=== PATIENT | female | born 1965 | race American Indian/Alaskan Native ===

== ENCOUNTER 2019-08-28 14:25 | Outpatient (CLI) | payer BC ==
--- NOTE | 2019-08-28 15:08 | Ultrasound Report ---
RIGHT AXILLARY ULTRASOUND HISTORY: Newly diagnosed right breast cancer. COMPARISON: 08/05/2019 [facility] mammogram. FINDINGS: Sonographic evaluation of the right axilla reveals no grossly abnormal lymph nodes. A 2.2 c m lymph node with a fatty hilum and a cortex of 4.3 mm. A smaller lymph node with central fat and a c ortical thickness of 3.9 mm. IMPRESSION: Right axillary lymph nodes with benign morphology and borderline thick cortex. BIRADS 3: Probably benign. Signer Name: Oleg Hyde MD Signed: 08/28/2019 3:03 PM Workstation Name: [id number]
== END 2019-08-28 14:26 | disposition home or self-care (01) ==
LOC: SPVWC 14:25
PROVIDERS: ATTEND Surgery
DX: C50.911 Malignant neoplasm of unspecified site of right female breast (principal)

== ENCOUNTER 2019-09-01 14:56 | Outpatient (CLI) | payer BC ==
--- NOTE | 2019-09-02 11:22 | Magnetic Resonance Report ---
BILATERAL BREAST MR WITHOUT AND WITH GADOLINIUM INDICATION: Newly diagnosed right breast cancer. COMPARISONS: 08/05/2019 [facility] mammogram and limited right breast ultrasound. TECHNIQUE: Axial 1.0 mm T1 without, axial high-resolution 2.0 mm T2 and axial 1.0 mm dynamic vibrant high-resolution postcontrast T1 fat saturation sequences on a 1.5 Meli magnet. The examination was p erformed with an 8-channel dedicated [place] breast coil. Post-processing with CAD and subtraction was performed on an Vpon workstation. 19.0 cc of MultiHance was injected without incident for the c ontrast portion of the exam. Consent was obtained prior to the administration of the contrast. FINDINGS: RIGHT BREAST: Minimal background parenchymal enhancement. An oval mass with with an adjacent biopsy c lip at 9:00 10 cm from the nipple correlates with a previously biopsied benign mass. It measures 15.0 x 7.4 x 5.1 mm and demonstrates a benign enhancement pattern with 72% type I persistent and 1% type III washout waveforms. An irregular heterogeneously enhancing mass of the lower outer quadrant chest wall correlates with the newly diagnosed cancer. It is located 18 cm from the nipple and 1.4 cm from the chest wall. The mass measures 4.8 x 4.1 x 3.5 cm and demonstrates heterogeneous enhancement with mixed kinetics, rapid initial enhancement, 295% peak enhancement and 62% type III washout. No invasio n of the chest wall. No suspicious right axillary or right internal mammary lymph nodes. LEFT BREAST: Minimal background parenchymal enhancement. No mass or suspicious enhancement. No suspic ious left axillary or left internal mammary lymph nodes. IMPRESSION: 1. A 4.8 x 4.1 x 3.5 cm known right breast cancer which is 18 cm from the nipple and 1.4 cm from the chest wall. This mass is not apparent on the recent mammogram. 2. No chest wall invasion. 3. No other suspicious lesion of either breast. 4. No suspicious lymph nodes. BI-RADS Category 6: Known Cancer Signer Name: Oleg Hyde MD Signed: 09/02/2019 11:17 AM Workstation Name: [id number]
== END 2019-09-01 14:57 | disposition home or self-care (01) ==
LOC: SPVIMAG 14:56
PROVIDERS: ATTEND Surgery
DX: C50.911 Malignant neoplasm of unspecified site of right female breast (principal); N63.41 Unspecified lump in right breast, subareolar; N63.23 Unspecified lump in the left breast, lower outer quadrant
CPT/HCPCS: A9577; C8908; 77049

== ENCOUNTER 2019-09-16 10:59 | Day surgery (SDC) | payer BC ==
--- NOTE | 2019-09-15 14:17 | Short Stay Summary ---
Short Stay Documentation Date of service: 09/16/19 - History H&P: obtained from office - Allergies and Medications Current Medications: Allergies No Known Allergies Allergy (Verified 09/11/19 15:42) Home Medications Medication Instructions Recorded Confirmed Last Taken Type AtorvaSTATin [Lipitor] 20 mg PO QHS 09/11/19 09/11/19 Unknown History Losartan/Hydrochlorothiazide 1 each PO DAILY 09/11/19 09/11/19 Unknown History [Losartan-Hctz 50-12.5 mg Tab] Sitagliptin Phos/Metformin HCl 2 tab PO QDAY 09/11/19 09/11/19 Unknown History [Janumet XR 50-1,000 mg] Active Medications Sodium Chloride (Nacl 0.9% 1000 Ml) 1,000 mls @ 75 mls/hr IV DIRECT ABEL - Physical exam General appearance: no acute distress HEENT: Atraumatic Lungs: Normal air movement Neurological: Normal speech - Brief post op/procedure progress note Date of procedure: 09/16/19 (dictation: [id number]) Pre-op diagnosis: breast cancer Post-op diagnosis: same Procedure: US guided port placement IVF - 800cc EBL min Anesthesia: GETA Findings: normal anatomy Surgeon: EARNESTINE BORJAS Estimated blood loss: minimal Pathology: none Condition: stable - Hospital course Hospital course: uneventful - Disposition Condition at discharge: Stable Disposition: DC-01 TO HOME OR SELFCARE Short Stay Discharge Plan Activity: advance as tolerated Diet: regular Wound: open to air, keep clean and dry Special Instructions: no heavy lifting Additional Instructions: Post Operative Instructions Activity: no heavy lifting for next 1 week. May shower tomorrow. Pat dry the wound or wounds. Keep incision sites clean and dry After surgery, start with a light diet. Consider starting with liquids. If you do well, you can advance to a regular diet as you feel comfortable. Apply an ice pack to the wound or wounds for 10-20 minutes at a time. Do this at least 4-5 times a day. You can do it more if he would like. Pain Medication Schedule for the first 2 days after surgery: Gabapentin 600mg twice a day Celebrex (celecoxib) 200mg twice a day Tylenol 500mg four times a day (every 6 hours) After the first 2 days, then take alternating doses of ibuprofen and Tylenol as needed for pain. Take 600 mg of ibuprofen every 6 hours as needed. Take 500 mg of Tylenol every 6 hours as needed. You should alternate these 2 medicines. Make sure you take the ibuprofen with food. It is very important that you use the prescription narcotic pain medicine (hydrocodone) only for very severe pain. Do not take the narcotic medicine before you try using all the medications listed above. We will call you in a couple of days to see how youre doing. If you have any questions or concerns, always feel free to call the clinic ([phone]) at any time. Follow up with: SAW RODAS MD [Primary Care Provider] - 7 Days Forms: [facility] Work/School Release Form Prescriptions: Acetaminophen [Acetaminophen TAB] 500 mg PO QID 2 Days tablet Celecoxib [celeBREX] 200 mg PO BID 2 Days capsule Gabapentin 600 mg PO BID 2 Days capsule HYDROcodone/APAP 5-325 [Nahma 5-325 mg TAB] 1 each PO Q6HR PRN #5 tablet PRN Reason: Pain
[~2019-09-16 10:59] MED LIST: ACETAMINOPHEN 500 MG TAB PO ONE; CELECOXIB 200 MG CAP PO NR; GABAPENTIN 300 MG CAP PO SCH; HEPARIN 10,000 UNITS/10 ML VIAL IV ONE; SODIUM CHLORIDE 0.9% 1000 ML 1,000 ML IV SCH
--- NOTE | 2019-09-16 11:29 | Anesthesia Day of Surgery ---
Anesthesia Day of Surgery - Day of Surgery Patient Examined: Yes Patient H&P Reviewed: Yes Patient is NPO: Yes
--- NOTE | 2019-09-16 11:34 | Anesthesia Consultation ---
Anesthesia Consult and Med Hx Date of service: 09/16/19 - Airway Anesthetic Teeth Evaluation: Caps ROM Head & Neck: Adequate Mental/Hyoid Distance: Adequate Mallampati Class: Class III Intubation Access Assessment: Probably Good - Pre-Operative Health Status ASA Pre-Surgery Classification: ASA3 Proposed Anesthetic Plan: General - Pulmonary Hx Smoking: No Hx Sleep Apnea: (HIGH RISK) - Cardiovascular System Hx Hypertension: Yes (X2YRS) - Central Nervous System Hx Psychiatric Problems: No - Other Systems Hx Alcohol Use: No Hx Substance Use: No Hx Cancer: Yes (Right breast)
[2019-09-16] MEDS ORDERED: MIDAZOLAM 2 MG/2 ML INJ IV NR (12:00)
[2019-09-16] MEDS ORDERED: ACETAMINOPHEN 500 MG TAB PO NR (13:00)
[2019-09-16] MEDS ORDERED: LACTATED RINGERS 1,000 ML IV SCH (13:00)
[2019-09-16] MEDS ORDERED: PROPOFOL 200 MG/20 ML VIAL IV ONE (13:45)
[2019-09-16] MEDS ORDERED: HYDROmorphone 1 MG/1 ML INJ ONE (13:45)
[2019-09-16] MEDS ORDERED: LIDOCAINE MPF (2%) 20 MG/1 ML VIAL 5 ML ONE (13:47)
[2019-09-16] MEDS ORDERED: LIDOCAINE (1%) 10 MG/1 ML VIAL 20 ML MDV ONE (14:10)
[2019-09-16] MEDS ORDERED: HEPARIN 10,000 UNITS/10 ML VIAL ONE (14:10)
[2019-09-16] MEDS ORDERED: BUPIVACAINE-EPINEPHRINE/PF 0.5%-1:200,000 (30 ML) VIAL INFILTRATI ONE ×2 (14:10→14:38)
[2019-09-16] MEDS ORDERED: SODIUM CHLORIDE 0.9% 250ML 250 ML ONE (14:10)
[2019-09-16] MEDS ORDERED: SODIUM CHLORIDE P/F VIAL 10 ML 10 ML ONE (14:37)
[2019-09-16] MEDS ORDERED: LIDOCAINE (1%) 10 MG/1 ML VIAL 20 ML MDV INFILTRATI ONE (14:38)
[2019-09-16] MEDS ORDERED: PHENYLEPHRINE/NS 1,000 MCG/10 ML SYRINGE (OR USE) IV ONE (14:44)
[2019-09-16] MEDS ORDERED: HEPARIN 1,000 UNIT/1 ML VIAL IV ONE (14:46)
[2019-09-16] MEDS ORDERED: SODIUM CHLORIDE 0.9% 250 ML IVPB IV ONE (14:46)
[2019-09-16] MEDS ORDERED: HEPARIN 10,000 UNITS/10 ML VIAL IV ONE (14:55)
[2019-09-16] MEDS ORDERED: ONDANSETRON 4 MG/2 ML INJ ONE (15:13)
[2019-09-16] MEDS ORDERED: KETOROLAC 30 MG/1 ML INJ ONE (15:13)
--- NOTE | 2019-09-16 16:07 | Fluoroscopy Report ---
FL CENTRAL VENOUS DEV PLCT and AP CXR 3:15 PM INDICATION / CLINICAL INFORMATION: Right breast cancer. CVL placement COMPARISON: None available. FINDINGS: There is a left jugular Port-A-Cath with the tip overlying the inferior right atrium. The heart size and pulmonary vasculature are normal. There is mild patchy parenchymal disease in the right perihilar region superiorly. I see no evidence of pneumothorax or pleural effusion. Fluoroscopy time: 1.1 minute. Fluoroscopic images: 1. IMPRESSION: 1. Left jugular CVL tip overlies the inferior right atrium. No pneumothorax. 2. Mild patchy parenchymal disease in the right perihilar region superiorly. Signer Name: Sai Dave MD Signed: 09/16/2019 4:03 PM Workstation Name: [id number]
--- NOTE | 2019-09-16 16:19 | Operative Report ---
PREOPERATIVE DIAGNOSIS: Breast cancer. POSTOPERATIVE DIAGNOSIS: Breast cancer. PROCEDURES: 1. Insertion of tunneled centrally inserted central venous access device with subcutaneous port. 2. Ultrasound guidance for vascular access. ATTENDING PHYSICIAN: Selena Hunt MD ANESTHESIA: General. ESTIMATED BLOOD LOSS: Minimal. FLUIDS: 800 mL. FINDINGS: Normal anatomy. IMPLANTS: Smart port. COMPLICATIONS: None. DISPOSITION: Stable transport to Recovery Room. INDICATIONS: This is a 54-year-old female who has recently been diagnosed with breast cancer. The patient is assessed to be need for chemotherapy, referred to General Surgery for port placement. Procedure, risks, benefits were explained to the patient. Risks included but were not limited to infection, bleeding, pain, injury to surrounding structures, possible need for further procedures in the future. The patient understood and consented. OPERATIVE NOTE: The patient was brought to the operating room and placed on the table in supine position. After adequate general anesthesia was established, the patient was prepped and draped in the usual sterile fashion. Roll was placed underneath the shoulder blades. SCDs were in place. Antibiotics have been given. Time-out was called. I began by doing an ultrasound examination of her left internal jugular vein and subclavian vein. The subclavian vein was difficult to identify. The left subclavian vein was large and patent and appeared to be easily accessible. This was chosen as our target site. Local anesthetic was injected over the planned insertion site. Small incision was made under ultrasound guidance. Introducer needle was directed into the vein. I was able to access the vein on the first attempt. Tip of the needle could be seen in the mid portion of the vein. We had good aspiration of blood. Guidewire easily passed. We went down into the right side of the heart. Please note the patient was in Trendelenburg position during this portion of the case. A guidewire was secured. We then directed our attention to creating a pocket. Additional local was injected. Sharp incision was made. Subcutaneous pocket was created and then the planned catheter site was injected with local. A tunneler was passed up to the neck. This was done safely. Dilator and sheath were then passed over the wire. A guidewire was easily movable at multiple points during the insertion of the sheath. Dilator and wire were removed. Catheter was inserted. We adjusted the position based on fluoroscopy and then we trimmed the length of the catheter attached the port and placed in the pocket. We tested it with heparinized saline. We had easy aspiration and flushing and then we locked the port. Catheter was positioned and completely underneath the skin. Sheath had been removed. Position and course of the catheter were checked with fluoroscopy. There were no kinks, no twists. Everything appeared to be lying appropriately. The tip of the catheter was slightly lower than our usual target; however, I felt that when the patient stands up due to the weight of her breasts, she is going to pull the catheter down, which should then pull the catheter tip back slightly. Our past experience is such that often times if we placed the tip exactly where we want and then the patient stands up, the catheter retracts much further back than where we originally intended to place it. Additional local was injected around the port. We had good hemostasis. Deep tissue was closed with interrupted 3-0 Vicryl sutures. Skin was closed with 4-0 Monocryl subcuticular stitch. Skin was cleaned and dried. Dermabond was placed. The patient tolerated the procedure well. There were no complications. All counts were correct at the end of the case. I tried to contact the family by phone; however, the voicemail seemed to have a different name compared to what was written on the chart; therefore, no voice mail was left. JOB# [id number] NIKOS/HUMERA CONDE
[2019-09-16 20:01] VITALS: BP 123/68
== END 2019-09-16 11:00 | disposition home or self-care (01) ==
LOC: OR 10:59
PROVIDERS: ATTEND Surgery
DX: C50.919 Malignant neoplasm of unspecified site of unspecified female breast (principal); G62.9 Polyneuropathy, unspecified; E78.00 Pure hypercholesterolemia, unspecified; I10 Essential (primary) hypertension; G47.30 Sleep apnea, unspecified; Z79.899 Other long term (current) drug therapy; Z98.891 History of uterine scar from previous surgery; Z98.890 Other specified postprocedural states; Z80.3 Family history of malignant neoplasm of breast; Z80.8 Family history of malignant neoplasm of other organs or systems
CPT/HCPCS: 36561; 77001; 82962; C1788; J0690; J1170; J1644; J1885; J2250; J2370; J2405; J2704; J7030; J7050; J7120

== ENCOUNTER 2019-09-18 08:14 | Outpatient (CLI) | payer BC ==
--- NOTE | 2019-09-18 13:33 | PET Report ---
PET/CT CLINICAL: Recently diagnosed right breast cancer COMPARISON: 09/01/2019, 08/28/2019, 08/05/2019. RADIOPHARMACEUTICAL: 14.939 mCi F-18-FDG TECHNIQUE: Following the intravenous injection of F-18-FDG and an approximately 60 minute uptake period, CT and PET images from the mid skull to the upper thighs were acquired with the patient in the fasted state. No contrast was administered. The CT protocol used for this PET CT study is designed for attenuation correction and anatomic localization of PET abnormalities. This application support CT is not desired to produ ce and cannot replace [id number] diagnostic CT scans with specific imaging protocols for differ ent body parts and indications. Plasma glucose at the time of this test: 111 g/dl The standardized uptake values (SUV) are normalized to patient body weight and indicate the highest a ctivity concentration (SUV max) in a given disease state. FINDINGS: Brain: Physiologic uptake in the visualized regions of the brain. Neck: Physiologic FDG uptake in mucosal structures. No mass or lymphadenopathy. Chest: There is a 3.8 x 2.9 cm mass within the lower outer right breast. This demonstrates hypermetab olic activity (Max SUV 16.6) and is consistent with site of known right breast malignancy at the 8:00 position. A few mildly prominent right lateral breast intramammary lymph nodes are also noted. Howev er, these demonstrate no significant increased hypermetabolic activity and these were evaluated on pr ior targeted ultrasound and were found to have benign morphology. No additional areas of focal metabo lic activity within the chest. Specifically, no pathologically enlarged mediastinal lymph nodes. A le ft chest Port-A-Cath is noted. Physiologic FDG uptake in mediastinal blood pool and myocardium. Lungs: No abnormal uptake. No pulmonary nodule or mass. Pleura/pericardium: No abnormal uptake. Thoracic nodes: No abnormal uptake. Hepatobiliary: No abnormal uptake or discrete liver mass or Spleen: No abnormal uptake. Pancreas: No abnormal uptake. Adrenal glands: No abnormal uptake. Kidneys/ureters/bladder: No abnormal uptake. Abdominopelvic nodes: No abnormal uptake. Bowel/peritoneum/mesentery: There are three focal areas of radiotracer uptake seen in the region of t he distal sigmoid colon and rectum. These up to 16 mm and demonstrate SUV max of 11.1. No definite CT correlate is identified, although the bowel this region is largely collapsed which limits evaluation . Pelvic organs: No abnormal uptake. Bones/soft tissues: No abnormal uptake. Other findings: Small fat-containing periumbilical hernias (3) are noted. IMPRESSION: Known biopsy-proven malignancy in the right lower outer breast measures up to 3.8 cm on current exam. No findings to suggest the presence of metastatic breast disease. There are three focal areas of radiotracer uptake in the region of the distal sigmoid colon and rectu m. No definite CT correlate is seen, although the bowel in this region is largely collapsed which brown its evaluation. These may represent focal areas of inflammation which can be seen in the setting of m ild diverticulitis. The presence of primary colonic malignancy cannot be excluded and a colonoscopy i s recommended, if patient has not had one recently. Signer Name: Jimbo Aleman MD Signed: 09/18/2019 1:29 PM Workstation Name: [id number]
== END 2019-09-18 08:15 | disposition home or self-care (01) ==
LOC: PET 08:14
PROVIDERS: ATTEND Internal Medicine Hematology
DX: C50.311 Malignant neoplasm of lower-inner quadrant of right female breast (principal); K42.9 Umbilical hernia without obstruction or gangrene; N63.13 Unspecified lump in the right breast, lower outer quadrant
CPT/HCPCS: 78815; 82962; A9552

== ENCOUNTER 2020-01-27 12:38 | Outpatient (CLI) | payer BC | END 2020-01-27 12:39 | disposition home or self-care (01) | LOC: SPVWC 12:38 | PROVIDERS: ATTEND Surgery | DX: C50.511 Malignant neoplasm of lower-outer quadrant of right female breast (principal) ==

== ENCOUNTER 2020-02-05 09:11 | Outpatient (CLI) | payer BC ==
--- NOTE | 2020-02-05 12:21 | Ultrasound Report ---
EXAMINATION: Limited Breast Ultrasound, 02/05/2020 INDICATION: RIGHT BREAST CANCER-S/P CHEMOTHERAPY COMPARISON: Prior right breast ultrasounds including 08/28/2019 and 08/05/2019, as well as prior mammograms includi ng 01/27/2020, 08/05/2019 FINDINGS: Targeted ultrasound evaluation was performed of the area of interest. In the 8:00 position of the right breast, 10 cm from the nipple, there is a 1.1 cm hypoechoic mass present. This is very minimal residua from known breast cancer identified in this location previously which had maximum diana meter of 3.2 cm on the prior exam. IMPRESSION: Previously noted large right breast cancer at 8:00 has been reduced to a 1.1 cm mass. Thi s represents significant response following chemotherapy. Follow up recommendation: Continued surgical consultation/evaluation. Patient is being followed by Dr Lyndon Almendarez. BI-RADS Category 6: Known Biopsy-Proven Malignancy. Signer Name: Debbie Trejo MD Signed: 02/05/2020 12:15 PM Workstation Name: [id number]
== END 2020-02-05 09:12 | disposition home or self-care (01) ==
LOC: SPVWC 09:11
PROVIDERS: ATTEND Surgery
DX: C50.511 Malignant neoplasm of lower-outer quadrant of right female breast (principal); N63.13 Unspecified lump in the right breast, lower outer quadrant

== ENCOUNTER 2020-02-18 14:14 | Outpatient (CLI) | payer BC, MEDICAID ==
--- NOTE | 2020-02-18 16:31 | Ultrasound Report ---
ULTRASOUND-GUIDED NEEDLE CORE BIOPSY Right BREAST WITH CLIP PLACEMENT CLINICAL: Patient has known right breast malignancy, status post neoadjuvant chemotherapy. We are ask ed to place clip at site of breast malignancy prior to breast surgery FINDINGS: The procedure was explained to the patient and informed consent was obtained. Ultrasound demonstrated the previously identified a vague small hypoechoic area in the right breast a t 8:00, 10 cm from the nipple measuring 7 x 3 mm.. This small vague hypoechoic area is thought to be residual site of patient's original 3 cm breast malignancy. I marked the breast with a felt tip marker and a timeout was called. The skin was prepped with chlorh exidine and anesthetized with 1% lidocaine. Needle core biopsy was performed through small dermatotomy using ultrasound guidance, 2% lidocaine wi th epinephrine for deep anesthesia and a 14-gauge Achieve biopsy device. Four cores were obtained and placed in formalin. A clip was deployed within the lesion. The patient tolerated the procedure well and there were no apparent complications. Hemostasis was ach ieved with minimal effort and a sterile dressing was applied. A post procedure mammogram demonstrated concordant clip deployment. Patient left the department in go od condition and was given instructions for wound care and follow-up. IMPRESSION: Technically successful ultrasound guided needle core biopsy with clip placement right breast. An addendum will be performed once pathology results are available. Signer Name: Debbie Trejo MD Signed: 02/18/2020 4:27 PM Workstation Name: [id number]
--- NOTE | 2020-02-18 16:36 | Mammography Report ---
DIGITAL DIAGNOSTIC MAMMOGRAM WITH CAD, 02/18/2020 INDICATION: Postprocedure clip placement mammogram. Biopsy clip was not placed at the time of origina l percutaneous breast biopsy. TECHNIQUE: Digital right mammographic imaging was performed. This examination was interpreted with the benefit of Computer-aided Detection analysis. COMPARISON: 08/05/2019 mammogram FINDINGS: Breast Density: There are scattered areas of fibroglandular density. . There is a small clip present in the 8:00 position of the breast 10 cm from the nipple. This corresp onds to the site of the palpable abnormality originally noted on 08/05/2019 mammogram and presumably is the site of the originally biopsied breast neoplasm. There is a second clip (celero) from a remote biopsy at 9:00, 8 cm from the nipple. IMPRESSION: Right breast clip placement at 8:00, 10 cm from the nipple, at what is thought to be resi dual site of breast neoplasm following chemotherapy. Follow up recommendation: Continued surgical evaluation BI-RADS Category 6: Known Biopsy-Proven Malignancy. A "normal" or negative report should not discourage follow up or biopsy of a clinically significant f inding. A written summary of these findings will be mailed to the patient. The patient will be entered into a mammography reporting system which will generate a reminder letter for the patient's next appointmen t at the appropriate interval. According to the [employer], yearly mammograms are recommended starting at age 40 and continuing as long as a woman is in good health. Breast MRI is recommended for women with an yolanda roximately 20-25% or greater lifetime risk of breast cancer, including women with a strong family his tory of breast or ovarian cancer and women who have been treated for Hodgkin's disease. Signer Name: Debbie Trejo MD Signed: 02/18/2020 4:31 PM Workstation Name: [id number]
== END 2020-02-18 14:15 | disposition home or self-care (01) ==
LOC: SPVWC 14:14
PROVIDERS: ATTEND Surgery
DX: N63.13 Unspecified lump in the right breast, lower outer quadrant (principal); N60.21 Fibroadenosis of right breast; G62.9 Polyneuropathy, unspecified; E78.00 Pure hypercholesterolemia, unspecified; I10 Essential (primary) hypertension; G47.30 Sleep apnea, unspecified; Z85.3 Personal history of malignant neoplasm of breast; Z98.891 History of uterine scar from previous surgery; Z98.890 Other specified postprocedural states; Z79.899 Other long term (current) drug therapy; Z80.8 Family history of malignant neoplasm of other organs or systems; Z80.3 Family history of malignant neoplasm of breast
CPT/HCPCS: 88305

== ENCOUNTER 2020-02-23 11:03 | Day surgery (SDC) | payer BC, MEDICAID ==
--- NOTE | 2020-02-23 09:58 | Anesthesia Consultation ---
Anesthesia Consult and Med Hx Date of service: 02/25/20 - Airway Anesthetic Teeth Evaluation: Caps ROM Head & Neck: Adequate Mental/Hyoid Distance: Adequate Mallampati Class: Class III Intubation Access Assessment: Probably Good - Pre-Operative Health Status ASA Pre-Surgery Classification: ASA2 Proposed Anesthetic Plan: General Nerve Block: PECS - Pulmonary Hx Smoking: No (2FS) Hx Sleep Apnea: (HIGH RISK) - Cardiovascular System Hx Hypertension: Yes (X2YRS. D/C'd her meds) Hx Coronary Artery Disease: No (Pt reports negative cardiac w/u prior to chemo) - Central Nervous System Hx Psychiatric Problems: No - Endocrine Hx Non-Insulin Dependent Diabetes: Yes (D/C'd her meds) - Other Systems Hx Alcohol Use: No Hx Substance Use: No Hx Cancer: Yes (Right breast) Hx Obesity: Yes (BMI 38)
[2020-02-23 10:11] VITALS: BP 141/88
[2020-02-25] MEDS ORDERED: ceFAZolin/Water 2 GM/20 ML 2 GM/20 ML SYRINGE IV NR (06:00)
== END 2020-02-25 23:59 | disposition home or self-care (01) ==
LOC: OR 11:03
PROVIDERS: ATTEND Surgery
DX: C50.911 Malignant neoplasm of unspecified site of right female breast (principal); Z11.59 Encounter for screening for other viral diseases; Z53.8 Procedure and treatment not carried out for other reasons; E11.42 Type 2 diabetes mellitus with diabetic polyneuropathy; G62.9 Polyneuropathy, unspecified; E78.00 Pure hypercholesterolemia, unspecified; I10 Essential (primary) hypertension; G47.30 Sleep apnea, unspecified; E66.9 Obesity, unspecified; Z98.891 History of uterine scar from previous surgery; Z80.3 Family history of malignant neoplasm of breast; Z98.890 Other specified postprocedural states
CPT/HCPCS: U0003-CS

== ENCOUNTER 2020-05-19 07:04 | Observation (INO) | payer BC, MEDICAID ==
[~2020-05-19 07:04] MED LIST changes: -ACETAMINOPHEN 500 MG TAB PO ONE; +BACITRACIN 50,000 UNIT VIAL IR ONE; +GABAPENTIN 300 MG CAP PO NR; -GABAPENTIN 300 MG CAP PO SCH; +GENTAMICIN 40 MG/ML VIAL 2 ML IV ONE; -HEPARIN 10,000 UNITS/10 ML VIAL IV ONE; +LACTATED RINGERS 1,000 ML IV SCH; +METHYLENE BLUE 50 MG/10 ML AMP IRRIGATION ONE; +MIDAZOLAM 2 MG/2 ML INJ IV NR; +SCOPOLAMINE TRANSDERMAL PATCH 72 HR TD NR; -SODIUM CHLORIDE 0.9% 1000 ML 1,000 ML IV SCH; +SODIUM CHLORIDE 0.9% IRR 1,500 ML BOTTLE IR ONE; +ceFAZolin 1 GM VIAL IV ONE; +ceFAZolin/Water 2 GM/20 ML 2 GM/20 ML SYRINGE IV NR; +fentaNYL 100 MCG/2 ML INJ IV PRN
--- NOTE | 2020-05-19 07:49 | Anesthesia Day of Surgery ---
Anesthesia Day of Surgery - Day of Surgery Patient Examined: Yes Patient H&P Reviewed: Yes Patient is NPO: Yes
--- NOTE | 2020-05-19 07:49 | Anesthesia Consultation ---
Anesthesia Consult and Med Hx Date of service: 05/19/20 - Airway Anesthetic Teeth Evaluation: Crowns ROM Head & Neck: Adequate Mental/Hyoid Distance: Adequate Mallampati Class: Class III Intubation Access Assessment: Possibly Difficult - Pulmonary Exam CTA: Yes - Cardiac Exam Cardiac Exam: RRR - Pre-Operative Health Status ASA Pre-Surgery Classification: ASA3 Proposed Anesthetic Plan: General Nerve Block: PECs - Pulmonary Hx Respiratory Symptoms: No (COVID+ but was asymptomatic. Recent neg test on chart.) Hx Sleep Apnea: (HIGH RISK) - Cardiovascular System Hx Hypertension: Yes (stopped meds on her own; runs 130s/80s at home) Hx Heart Attack/AMI: No Hx Percutaneous Transluminal Coronary Angioplasty (PTCA): No Hx Cardia Arrhythmia: No - Central Nervous System CVA: No Hx Psychiatric Problems: No - Gastrointestinal Hx Gastroesophageal Reflux Disease: No - Endocrine Hx Renal Disease: No Hx Liver Disease: No Hx Non-Insulin Dependent Diabetes: Yes (stopped meds on her own, fasting BG 140s-160s at home) Hx Thyroid Disease: No - Other Systems Hx Cancer: Yes (breast ca) Hx Obesity: Yes (BMI 38)
[2020-05-19] MEDS ORDERED: dexAMETHasone 4 MG/ML VIAL ONE (07:57)
[2020-05-19] MEDS ORDERED: BUPIVACAINE-EPINEPHRINE/PF 0.25%-1:200,000 (30 ML) VIAL INFILTRATI ONE (07:57)
[2020-05-19] MEDS ORDERED: dexAMETHasone 20 MG/5 ML VIAL ONE (09:30)
[2020-05-19] MEDS ORDERED: ONDANSETRON 4 MG/2 ML INJ ONE (09:30)
[2020-05-19] MEDS ORDERED: HYDROmorphone 1 MG/1 ML INJ ONE ×2 (09:30→18:18)
[2020-05-19] MEDS ORDERED: propofoL 200 MG/20 ML VIAL IV ONE (09:30)
[2020-05-19] MEDS ORDERED: LIDOCAINE MPF (2%) 20 MG/1 ML VIAL 5 ML ONE (09:30)
[2020-05-19] MEDS ORDERED: PHENYLEPHRINE/NS 1,000 MCG/10 ML SYRINGE (OR USE) IV ONE (09:30)
[2020-05-19] MEDS ORDERED: LACTATED RINGERS 1000 ML IV SOLN ONE (09:30)
[2020-05-19] MEDS ORDERED: ROCURONIUM 50 MG/5 ML INJ IV ONE (09:30)
[2020-05-19] MEDS ORDERED: METHYLENE BLUE 50 MG/10 ML AMP IRRIGATION ONE ×2 (11:31→15:41)
[2020-05-19] MEDS ORDERED: SODIUM CHLORIDE 0.9% P/F 10 ML VIAL INFILTRATI ONE (11:32)
[2020-05-19] MEDS ORDERED: ceFAZolin 1 GM VIAL ONE (12:24)
[2020-05-19] MEDS ORDERED: GENTAMICIN 40 MG/ML VIAL 2 ML ONE (12:24)
[2020-05-19] MEDS ORDERED: SODIUM CHLORIDE P/F VIAL 10 ML 20 ML ONE (12:24)
[2020-05-19] MEDS ORDERED: BACITRACIN 50,000 UNIT VIAL ONE (12:24)
[2020-05-19] MEDS ORDERED: SODIUM CHLORIDE 0.9% 1000 ML 1,000 ML ONE (14:08)
[2020-05-19] MEDS ORDERED: SODIUM CHLORIDE 0.9% IRR 1,500 ML BOTTLE IR ONE ×2 (14:52→15:21)
[2020-05-19] MEDS ORDERED: ONDANSETRON 4 MG/2 ML INJ IV PRN (14:53)
[2020-05-19] MEDS ORDERED: METOCLOPRAMIDE 10 MG TAB PO PRN (14:53)
[2020-05-19] MEDS ORDERED: diphenhydrAMINE 25 MG CAP PO PRN (14:53)
[2020-05-19] MEDS ORDERED: oxyCODONE /ACETAMINOPHEN 5-325MG TAB PO PRN (14:53)
--- NOTE | 2020-05-19 14:53 | Short Stay Summary ---
Short Stay Documentation Date of service: 05/19/20 - History H&P: obtained from office - Allergies and Medications Current Medications: Allergies No Known Allergies Allergy (Verified 05/12/20 09:54) Home Medications Medication Instructions Recorded Confirmed Last Taken Type Capecitabine [Xeloda] 500 mg PO BID 05/12/20 05/12/20 05/11/20 History Active Medications Celecoxib (Celebrex) 200 mg PO PREOP NR Stop: 05/19/20 22:00 Last Admin: 05/19/20 08:20 Dose: 200 mg Documented by: Fentanyl (Sublimaze) 100 mcg IV ONCE PRN PRN Reason: sedation for nerve block Stop: 05/19/20 22:00 Last Admin: 05/19/20 08:51 Dose: 50 mcg Documented by: Gabapentin (Gabapentin) 300 mg PO PREOP NR Stop: 05/19/20 22:00 Last Admin: 05/19/20 08:20 Dose: 300 mg Documented by: Hydromorphone HCl (Dilaudid) 0.5 mg IV Q10MIN PRN PRN Reason: Pain , Severe (7-10) Stop: 05/19/20 22:00 Cefazolin Sodium (Ancef/Sterile Water 2 Gm/20 Ml) 2 gm in 20 mls @ 80 mls/hr IV PREOP NR; Protocol Stop: 05/19/20 23:59 Lactated Ringer's (Lactated Ringers) 1,000 mls @ 100 mls/hr IV DIRECT ABEL Stop: 05/19/20 23:59 Last Admin: 05/19/20 08:30 Dose: 100 mls/hr Documented by: Midazolam HCl (Versed) 2 mg IV PREOP NR Stop: 05/19/20 22:00 Last Admin: 05/19/20 08:51 Dose: 2 mg Documented by: Scopolamine (Transderm-Scop) 1 each TD PREOP NR Stop: 05/19/20 22:00 Last Admin: 05/19/20 08:21 Dose: 1 each Documented by: - Brief post op/procedure progress note Date of procedure: 05/19/20 Pre-op diagnosis: Right breast cancer lower outer quadrant Post-op diagnosis: same Procedure: Bilateral total mastectomy and right SLNB Anesthesia: GETA Findings: Right breast clip x2; x2 SLNs and negative for malignancy on frozen section Surgeon: JAYLEEN FONTAINE Estimated blood loss: other (200 cc) Pathology: list (bilateral mastectomy; right SLNBx2) Specimen disposition: to lab Condition: stable - Disposition Condition at discharge: Good Disposition: DC/TX- [facility] IP Short Stay Discharge Plan Activity: other (no heavy lifting) Diet: regular Wound: keep clean and dry Follow up with: JAYLEEN FONTAINE MD [Staff Physician] - 7 Days
[2020-05-19] MEDS ORDERED: MORPHINE 2 MG/1 ML INJ IV PRN (14:56)
[2020-05-19] MEDS ORDERED: ACETAMINOPHEN 325 MG TAB PO PRN (15:00)
[2020-05-19] MEDS ORDERED: LACTATED RINGERS 1,000 ML IV SCH (15:00)
--- NOTE | 2020-05-19 15:07 | Operative Report ---
Operative Report Operative Report: Operative Report: Date of Service: May 19, 2020 Preoperative diagnosis: Right breast cancer of the lower outer quadrant Postoperative diagnosis: Same Procedure: Right total mastectomy with sentinel lymph node biopsy and left total mastectomy Surgeon: Faiza Almendarez M.D. Towel Inspector: Mona Michele M.D. Anesthesia: Gen. 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 She completed neoadjuvant chemotherapy of AC/T. Recommendations were to proceed with a bilateral total mastectomy given BRCA1 positive gene mutation. She wished to proceed with immediate bilateral tissue associate software developer placement. Her surgery was delayed given she tested positive to COVID-19 twice, she was started on Xeloda until surgery however. She remained asymptomatic in regards to COVID. She understands to role of possible adjuvant XRT pending final pathology. She wished to proceed with the above procedure. Procedure in detail: The patient was taken to the operating room and was placed supine. Gen. anesthesia was administered. The right nipple was injected with radioisotope and 1 cc of methylene blue. Bilateral chest and axillas were prepped and draped in the normal sterile operative fashion. Timeout was performed. Typical mastectomy incision markings were made with right mastectomy incision. Attention was taken toward the left breast first. First began raising of the superior flap to the level of the clavicle superiorly and posteriorly to the pectoralis muscle. Followed by raising of the medial flap to the level of the sternum and posteriorly to the pectoralis muscle. Followed by raising of the lateral flap to the level of the latissimus dorsi muscle and taken down posteriorly. Followed by raising of the inferior flap to the level of the inframammary fold taken posterior to the pectoralis muscle. The mastectomy/breast was removed from the pectoralis muscle without incident. The specimen was appropriately marked and sent to pathology. Hemostasis was obtained. The chest wall cavity was irrigated. Attention was taken towards the right breast. A gamma probe was inserted into the axilla to identify the sentinel lymph node location with uptake noted. A skin incision was made with a 10 blade knife and dissection taken down to the subcutaneous tissues. First began raising of the superior flap to the level of the clavicle superiorly and posteriorly to the pectoralis muscle. Followed by raising of the medial flap to the level of the sternum and posteriorly to the pectoralis muscle. Followed by raising of the lateral flap to the level of the latissimus dorsi muscle and taken down posteriorly. The gamma probe was inserted into the axilla, the axillary fascia was opened and 2 SLNS were identified that were dissected free and sent to pathology. All remaining counts in the axilla were less than 10% of the highest count of SLNs. All SLNs sent to pathology with findings negative for malignancy on frozen section. Then proceeded with raising of the inferior flap to the level of the inframammary fold taken posterior to the pectoralis muscle. The mastectomy/breast was removed from the pectoralis muscle without incident. The specimen was appropriately marked and sent to radiology with findings of x2 breast clips present and sent to pathology. Hemostasis was obtained. The chest wall cavity was irrigated. Plastic surgery then proceeded with bilateral tissue associate software developer placement. She tolerated surgery very well.
[2020-05-19] MEDS ORDERED: GENTAMICIN 40 MG/ML VIAL 2 ML IV ONE (15:21)
[2020-05-19] MEDS ORDERED: ceFAZolin 1 GM VIAL IV ONE (15:21)
[2020-05-19] MEDS ORDERED: BACITRACIN 50,000 UNIT VIAL IR ONE (15:21)
[2020-05-19] MEDS ORDERED: SODIUM CHLORIDE 0.9% 1000 ML IV SOLN IR ONE (15:41)
--- NOTE | 2020-05-19 17:03 | Mammography Report ---
SPECIMEN RADIOGRAPH INDICATION: Right breast malignancy.. COMPARISON: 02/18/2020. FINDINGS/IMPRESSION: Single specimen radiograph was obtained. This demonstrates a cylindrical biopsy marker and coil shape d biopsy marker located within the periphery of the specimen (1.6 cm from the specimen edge). Signer Name: Jimbo Aleman MD Signed: 05/19/2020 4:58 PM Workstation Name: [id number]
--- NOTE | 2020-05-19 17:17 | Operative Report ---
Operative Report Operative Report: Plastic Surgery Operative Note Surgeon: Melba Christy MD Veneer Sorter: Miguel Michele Preoperative Diagnosis: Acquired absence of the bilateral breasts; Malignant neoplasm of the right breast Postoperative Diagnosis: Same Procedure: Bilateral breast reconstruction with tissue pad extractor tender placement and FlexHD acellular dermal matrix. Anesthesia: General EBL: 50cc Indications: This patient is a 54 year old AAF who is scheduled for a right mastectomy and desires a bilateral procedure so as to reduce risk for future malignancy. She is opting for reconstruction and after review of her options we determined that a tissue pad extractor tender placement with FlexHD dermal scaffold was her best option. We discussed her options including autologous tissue transfer and she was interested in the least complex reconstructive route possible. So we planned for tissue pad extractor tender placement with the use of acellular dermal matrix. The benefits as well as the risks of the procedure were discussed with the patient, including but not limited to infection, bleeding, hematoma, seroma, wound dehiscence, implant rupture, need for further surgery including planned stages and additional reconstruction. The patient understands and accepts these risks and desires to proceed with surgery. Procedure: After review of pertinent history and physical exam findings the patient was brought into the operating room and placed supine on the OR table. After induction of adequate general anesthesia the entire chest was prepped and draped in the usual sterile surgical fashion. To begin, Dr. Faiza Almendarez performed the mastectomies and this procedure is dictated under a separate operative note. When this was completed, the breast reconstruction was started on the left breast. Using electrocautery we dissected a submuscular pocket behind pectoralis muscle to accommodate the tissue pad extractor tender. The pocket was thoroughly irrigated with triple antibiotic solution and we began creating the inframammary border using Flex HD perforated contoured, a total size of [id number], SN [id number]. The inferior aspect of the Flex HD was secured to the chest fascia using 2-0 PDS suture. This was followed by placement of the tissue pad extractor tender, Newton Siltex 800cc (SN [id number]), in the submuscular pocket. Following this inferior border of the pectoralis fascia was secured to the superior border of the FlexHD also using 2-0 PDS suture. The same exact procedure was repeated on the left side (FlexHD: [id number]; Newton: [id number]). 19 Tamazight KAUSHIK drains were placed bilaterally and secured using 2-0 Nylon sutures. We then began a 3-layered closure using 3-0 Monoderm Quill [id number] suture. This was followed by Dermabond glue and then Telfa with tegaderm followed by bra binder. Patient was then awakened from general anesthesia and transferred to the recovery room instable condition.
[2020-05-19] MEDS: HYDROmorphone 1 MG/1 ML INJ IV PRN ×4 (17:44→18:32)
[2020-05-19] MEDS ORDERED: INSULIN REGULAR, HUMAN 100 UNIT/ML 3ML VIAL IV ONE (18:08)
[2020-05-19] MEDS ORDERED: INSULIN REGULAR, HUMAN 100 UNIT/ML 3ML VIAL ONE (18:13)
[2020-05-19] MEDS ORDERED: INSULIN REGULAR, HUMAN 100 UNITS/1 ML ONE (18:30)
[2020-05-19] MEDS ORDERED: KETOROLAC 30 MG/1 ML INJ ONE (18:31)
[2020-05-19] MEDS ORDERED: KETOROLAC 30 MG/1 ML INJ IV NR (18:33)
--- NOTE | 2020-05-19 18:55 | Post Anesthesia Evaluation ---
- Post Anesthesia Evaluation Patient Participated: Yes Airway Patent: Yes Stable Respiratory Function: Yes Nausea/Vomiting: No Temp > 96.8F: Yes Pain Manageable: Yes Adequeate Hydration: Yes Anesthesia Complications: No
[2020-05-19] MEDS ORDERED: LACTATED RINGERS 1,000 ML ONE (19:02)
[2020-05-19] MEDS: ceFAZolin/NS 1 GM/50 ML 1 GM/50 ML BAG IV SCH (22:37)
[2020-05-20] MEDS: ceFAZolin/NS 1 GM/50 ML 1 GM/50 ML BAG IV SCH (05:31)
[2020-05-20] MEDS: DOCUSATE SODIUM 100 MG CAP PO SCH ×2 (06:23→09:01)
--- NOTE | 2020-05-20 10:41 | Progress Note ---
Subjective Date of service: 05/20/20 Interval history: Plastic Surgery Progress Pt is POD #1 s/p bilateral mastectomy with immediate reconstruction using Tissue Expanders and FlexHD. She is doing well. Has minimal pain. She has been OOB to chair and has had a little to eat, but denies nausea or vomitting. No fever or chills, no CP or SOB. Exam AFVSS KAUSHIK drains in place with serosanguinous output. Breast incisions with dressings intact, clean and dry. No evidence of hematoma or seroma. A/P: 54 year old female s/p bilateral mastectomy and breast reconstruction. Pt is appropriate for discharge to home today. Her prescriptions have already been called in to her pharmacy of choice. KAUSHIK drain care teaching prior to d/c. Ok to shower in 24 hours Keep bra binder in place 12/03 except to shower. Follow up in one week with Dr. Christy. Objective - Constitutional Vitals: Vital Signs - 12hr 05/20/20 05/20/20 00:20 09:02 Temperature 98.2 F 98.0 F Pulse Rate 81 Respiratory 20 24 Rate Blood Pressure 106/63 118/68 O2 Sat by Pulse 95 Oximetry - Labs Labs: Abnormal lab results 05/19/20 Range/Units 18:23 POC Glucose 219 H (70-105) Medications & Allergies - Medications Allergies/Adverse Reactions: Allergies No Known Allergies Allergy (Verified 05/12/20 09:54) Home Medications: Home Medications Medication Instructions Recorded Confirmed Last Taken Type Capecitabine [Xeloda] 500 mg PO BID 05/12/20 05/12/20 05/11/20 History Active Medications: Generic Name Dose Route Start Last Admin Trade Name Freq PRN Reason Stop Dose Admin Acetaminophen 650 mg 05/19/20 15:00 Tylenol PO Q6H PRN Pain MILD(1-3)/Fever >100.5/GUARDADO Diphenhydramine HCl 25 mg 05/19/20 14:53 Benadryl PO Q8H PRN Itching Docusate Sodium 100 mg 05/19/20 22:00 05/20/20 09:01 Colace PO 100 mg BID ABEL Administration Hydromorphone HCl 2 mg 05/19/20 14:53 Dilaudid PO Q6H PRN Pain , Severe (7-10) Cefazolin Sodium 1 gm in 50 mls @ 100 mls/hr 05/19/20 22:00 05/20/20 05:31 Ancef/Ns 1 Gm/50 Ml IV 100 mls/hr Q8HR ABEL Administration Protocol Lactated Ringer's 1,000 mls @ 125 mls/hr 05/19/20 15:00 05/20/20 05:34 Lactated Ringers IV 125 mls/hr DIRECT ABEL Administration Ketorolac Tromethamine 30 mg 05/19/20 18:33 05/19/20 18:34 Toradol IV 05/24/20 20:33 30 mg ONCE NR Administration Metoclopramide HCl 10 mg 05/19/20 14:53 Reglan PO Q6H PRN Nausea And Vomiting Morphine Sulfate 2 mg 05/19/20 14:56 05/20/20 05:41 Morphine IV 2 mg Q4H PRN Administration Pain, Moderate (4-6) Ondansetron HCl 4 mg 05/19/20 14:53 Zofran IV Q8H PRN N/V unrelieved by Reglan Oxycodone/Acetaminophen 1 tab 05/19/20 14:53 05/20/20 09:01 Percocet 5/325 PO 1 tab Q6H PRN Administration Pain, Moderate (4-6) Sodium Chloride 10 ml 05/19/20 14:53 Sodium Chloride Flush Syringe 10 Ml IV PRN PRN LINE FLUSH
[2020-05-20] MEDS: HYDROmorphone 2 MG TAB PO PRN ×2 (11:30→11:51)
[2020-05-20 12:39] VITALS: BP 112/64
== END 2020-05-20 12:45 | disposition home or self-care (01) ==
LOC: OR 07:04 → OB 14:54
PROVIDERS: ADMIT Plastic Surgery; ATTEND Plastic Surgery
DX: C50.511 Malignant neoplasm of lower-outer quadrant of right female breast (principal); Z20.828 Contact with and (suspected) exposure to other viral communicable diseases; Z79.899 Other long term (current) drug therapy; Z15.01 Genetic susceptibility to malignant neoplasm of breast; Z15.02 Genetic susceptibility to malignant neoplasm of ovary; Z15.09 Genetic susceptibility to other malignant neoplasm
CPT/HCPCS: 19303; 19357; 38525; 38792; 64450; 76098; 78800; 82962; 88305; 96365; 96366; 96375; A9541; C1789; G0378; J0690; J1100; J1170; J1580; J1885; J2250; J2270; J2370; J2405; J2704; J3010; J7030; J7120; Q4128; Q9968; U0003; J1815

== ENCOUNTER 2020-08-02 06:28 | Day surgery (SDC) | payer BC, MEDICAID ==
[~2020-08-02 06:28] MED LIST changes: +BACITRACIN ZINC OINT 28.4 GM TP ONE; -CELECOXIB 200 MG CAP PO NR; -GABAPENTIN 300 MG CAP PO NR; -LACTATED RINGERS 1,000 ML IV SCH; -METHYLENE BLUE 50 MG/10 ML AMP IRRIGATION ONE; -MIDAZOLAM 2 MG/2 ML INJ IV NR; -SCOPOLAMINE TRANSDERMAL PATCH 72 HR TD NR; -SODIUM CHLORIDE 0.9% IRR 1,500 ML BOTTLE IR ONE; +SODIUM CHLORIDE 0.9% IRRIG SOLN 3000 ML IR ONE; +ceFAZolin 1 GM VIAL IR ONE; -ceFAZolin 1 GM VIAL IV ONE; -ceFAZolin/Water 2 GM/20 ML 2 GM/20 ML SYRINGE IV NR; -fentaNYL 100 MCG/2 ML INJ IV PRN
[2020-08-02] MEDS ORDERED: BACITRACIN 50,000 UNIT VIAL ONE ×3 (10:06→10:18)
[2020-08-02] MEDS ORDERED: GENTAMICIN 40 MG/ML VIAL 2 ML ONE ×2 (10:06→10:10)
[2020-08-02] MEDS ORDERED: ceFAZolin 1 GM VIAL ONE ×2 (10:06→10:10)
[2020-08-02] MEDS ORDERED: SODIUM CHLORIDE 0.9% 1000 ML 0 ML ONE (10:07)
[2020-08-02] MEDS ORDERED: dexAMETHasone 20 MG/5 ML VIAL ONE (10:24)
[2020-08-02] MEDS ORDERED: KETOROLAC 30 MG/1 ML INJ ONE (10:24)
[2020-08-02] MEDS ORDERED: ONDANSETRON 4 MG/2 ML INJ ONE (10:24)
[2020-08-02] MEDS ORDERED: LIDOCAINE MPF (2%) 20 MG/1 ML VIAL 5 ML ONE (10:24)
[2020-08-02] MEDS ORDERED: ROCURONIUM 50 MG/5 ML INJ IV ONE (10:24)
[2020-08-02] MEDS ORDERED: propofoL 200 MG/20 ML VIAL IV ONE (10:25)
[2020-08-02] MEDS ORDERED: HYDROmorphone 1 MG/1 ML INJ ONE (10:25)
[2020-08-02] MEDS ORDERED: LIDOCAINE 1%/EPINEPHRINE 1:100,000 VIAL (20 ML) INFILTRATI ONE (10:35)
--- NOTE | 2020-08-02 12:05 | Anesthesia Day of Surgery ---
Anesthesia Day of Surgery - Day of Surgery Patient Examined: Yes Patient H&P Reviewed: Yes Patient is NPO: Yes
--- NOTE | 2020-08-02 12:06 | Anesthesia Consultation ---
Anesthesia Consult and Med Hx Date of service: 08/02/20 - Airway Intubation Access Assessment: Probably Good (Unable to assess airway) - Pre-Operative Health Status ASA Pre-Surgery Classification: ASA3, Emergency Proposed Anesthetic Plan: General - Pulmonary Hx Respiratory Symptoms: No (COVID+ and case is emergent) - Cardiovascular System Hx Hypertension: Yes (stopped meds on her own; runs 130s/80s at home) Hx Cardia Arrhythmia: No - Central Nervous System Hx Psychiatric Problems: No - Gastrointestinal Hx Gastroesophageal Reflux Disease: No - Endocrine Hx Non-Insulin Dependent Diabetes: Yes (stopped meds on her own, fasting BG 140s-160s at home) Hx Thyroid Disease: No - Other Systems Hx Cancer: Yes Hx Obesity: Yes (BMI 38)
[2020-08-02] MEDS ORDERED: LACTATED RINGERS 1,000 ML ONE (12:15)
[2020-08-02] MEDS ORDERED: ceFAZolin/Water 2 GM/20 ML 4 GM/40 ML SYRINGE IV ONE (12:42)
--- NOTE | 2020-08-02 13:56 | Operative Report ---
Operative Report Operative Report: Plastic Surgery Operative Report Preoperative Diagnosis: Acquired absence of the bilateral breasts s/p Tissue Shift Superintendent Caustic Cresylate reconstruction now with infected left tissue composing machine operator, partial thickness skin necrosis and cellulitis. Postoperative Diagnosis: Same Procedure: Excisional debridement of left breast wound; removal of tissue composing machine operator Surgeon: Melba hCristy MD Sheet Rock Installer: None Anesthesia: General Specimens: subpectoral aerobic and anaerobic swab cultures; left breast skin EBL: Minimal Indications: This patient is a 55 year old female who underwent bilateral breast reconstruction immediately following mastectomy with a tissue composing machine operator Flex HD. Over the previous weekend she noticed that her left breast was red and inflammed, and although an area where the skin had scabbed over post mastectomy was stable, the cellulitis was still concerning. She denied drainage, fever or chills. She was started on oral antibiotics and after 3 days noted to have more redness and a new onset of tenderness. We discussed her best options given her worsening even with oral antibiotics and concluded that removal of tissue composing machine operator and allowing time to heal with a plan to revisit reconstruction later was her safest option. Patient agreed with this plan and she was scheduled for excisional debridement of the left breast wound with removal of the tissue composing machine operator. Of note, she was found to be COVID-19 positive by an outside test she had done preop. We discussed the plan for future reconstruction at length with the patient. Informed consent was obtained. Procedure: After review of pertinent history and physical exam findings patient was brought into the operating room and placed supine on the OR table. After induction of adequate endotracheal anesthesia the bilateral breasts were prepped and draped in the usual sterile surgical fashion. To begin, on the left side, using the existing open wound, marking pen was used to delineate the fibrotic skin edges that were to be excised. A No. 10 blade was used to excise the aforementioned skin and electrocautery was used for hemostasis. Cultures were taken and then the implant was removed without difficulty. The FlexHD visible within the implant pocket was found to be almost 100% incorporated. Next, thorough irrigation was done with pulse lavage using triple antibiotic solution (3L). A 15 Armenian Nuno drain was placed and the incision was closed in 3 layers using a 3-0 Monocryl Quill and 2-0 Monocryl suture. The incisions were then sealed with Dermabond and dressed with ABD pads and the drain placed to suction. A surgical binder was placed for added hemostasis. The patient was then awakened from general anesthesia and transferred to the recovery room in stable condition. There were no complications. All sponge needle and instrument counts were correct at the end of the case. She will be discharged home on a course of oral antibiotics.
[2020-08-02] MEDS ORDERED: HYDROcodone/ACETAMINOPHEN 7.5-325MG TAB PO PRN (13:57)
[2020-08-02] MEDS ORDERED: ONDANSETRON 4 MG/2 ML INJ IV PRN (13:57)
[2020-08-02] MEDS ORDERED: LACTATED RINGERS 1,000 ML IV SCH (14:00)
[2020-08-02 15:19] VITALS: BP 129/72
[2020-08-02] MEDS ORDERED: NEOSTIGMINE 10MG/10 ML INJ MDV ONE (15:43)
[2020-08-02] MEDS ORDERED: GLYCOPYRROLATE 0.4 MG/2 ML INJ ONE (15:43)
--- NOTE | 2020-08-02 16:11 | Post Anesthesia Evaluation ---
- Post Anesthesia Evaluation Patient Participated: Yes Airway Patent: Yes Stable Respiratory Function: Yes Nausea/Vomiting: No Temp > 96.8F: Yes Pain Manageable: Yes Adequeate Hydration: Yes Anesthesia Complications: No Block Receding Appropriately: Not Applicable Patient on Ventilator: No
== END 2020-08-02 06:29 | disposition home or self-care (01) ==
LOC: OR 06:28
PROVIDERS: ATTEND Plastic Surgery
DX: N64.1 Fat necrosis of breast (principal); N61.0 Mastitis without abscess; G62.9 Polyneuropathy, unspecified; E78.00 Pure hypercholesterolemia, unspecified; I10 Essential (primary) hypertension; E11.9 Type 2 diabetes mellitus without complications; E66.9 Obesity, unspecified; Z85.3 Personal history of malignant neoplasm of breast; Z79.899 Other long term (current) drug therapy; Z90.13 Acquired absence of bilateral breasts and nipples; Z98.891 History of uterine scar from previous surgery; Z98.890 Other specified postprocedural states; Z68.38 Body mass index [BMI] 38.0-38.9, adult
CPT/HCPCS: 11042; 11971; 87075; 87116; 88304; A4217; J0690; J1100; J1170; J1580; J1885; J2405; J2704; J2710; J7120; J7030

== ENCOUNTER 2021-02-01 06:37 | Day surgery (SDC) | payer BC, MEDICAID ==
[2021-02-01] MEDS ORDERED: BUPIVACAINE/PF (0.5%) 5 MG/1 ML 30 ML VIAL INFILTRATI ONE ×2 (07:09→07:46)
[2021-02-01] MEDS ORDERED: LIDOCAINE (1%) 10 MG/1 ML VIAL 20 ML MDV ONE (07:09)
[2021-02-01 07:21] VITALS: BP 130/87
[2021-02-01] MEDS ORDERED: LIDOCAINE (1%) 10 MG/1 ML VIAL 20 ML MDV INFILTRATI ONE (08:34)
--- NOTE | 2021-02-01 09:11 | Procedure Note ---
Date of procedure: 02/01/21 Pre-op diagnosis: breast ca Post-op diagnosis: same Procedure: removal of infusaport Findings: Patient identified and brought to procedure room. Positioned on stretcher in supine position. Left upper chest prepped and draped in sterile fashion and time out performed. Patient placed in trendelenberg position. Local anesthetic was infiltrated into the skin at the intended incision site. An incision was made through the old scar using a 15 blade. Dissection carried out in the subcutaneous tissue using hemostat until port encountered. The port was dissected from the capsule using electrocautery. Then it was dissected bluntly f rom the surrounding subcutaneous tissue. The catheter was grasped between two hemostats and cut using scissors. The catheter was removed and pressure held at the site for several minutes. The subcutaneous port was removed from the wound and both pieces passed off the table as a specimen for ID only. The wound was irrigated and checked for hemostasis. Hemostasis was carefully ensured. Local anesthetic was once again infilitrated into the skin. The deep dermal layer was closed using 3-0 vicryl interrupted stitches. The skin was closed with 4-0 monocryl subcuticular running stitch and skin glue. Once the glue was dry, a 4x4 gauze dressing was applied and secured with tegaderm. The patient tolerated the procedure well and all sharps were disposed of appropriately. The sharp, instrument, and sponge counts were correct. The patient was discharged to home in stable condition. Anesthesia: local Surgeon: CHRISTIE PEACOCK Estimated blood loss: minimal Pathology: list (port and catheter) Specimen disposition: to lab (for ID only) Condition: stable Disposition: other (HOME)
== END 2021-02-01 08:16 | disposition home or self-care (01) ==
LOC: OR 06:37
PROVIDERS: ATTEND Surgery
DX: Z45.2 Encounter for adjustment and management of vascular access device (principal); C50.919 Malignant neoplasm of unspecified site of unspecified female breast; G62.9 Polyneuropathy, unspecified; E78.00 Pure hypercholesterolemia, unspecified; I10 Essential (primary) hypertension; E66.9 Obesity, unspecified; E11.9 Type 2 diabetes mellitus without complications; Z98.890 Other specified postprocedural states; Z80.3 Family history of malignant neoplasm of breast; Z79.899 Other long term (current) drug therapy; Z90.13 Acquired absence of bilateral breasts and nipples; Z98.891 History of uterine scar from previous surgery; Z68.38 Body mass index [BMI] 38.0-38.9, adult
CPT/HCPCS: 82962; 88300; 88302